=== PATIENT | female | born 1935 | race Hispanic/Latino ===

== ENCOUNTER 2021-07-17 14:15 | Emergency (ER) | payer MEDICARE ==
[~2021-07-17] VITALS: Ht 149.9 cm; Wt 68.1 kg
[2021-07-17] MEDS ORDERED: GLIMEPIRIDE2 MG PO (14:46)
[2021-07-17] MEDS ORDERED: PRAVASTATIN SOD40 MG (14:46)
[2021-07-17] MEDS ORDERED: AMIODARONE HCL200 MG PO (14:46)
[2021-07-17] MEDS ORDERED: LORATADINE10 MG PO (14:46)
[2021-07-17] MEDS ORDERED: ELIQUIS2.5 MG PO (14:46)
[2021-07-17] MEDS ORDERED: SYNTHROID50 MCG PO (14:46)
[2021-07-17] MEDS ORDERED: LOSARTAN POTASS25 MG PO (14:46)
[2021-07-17] MEDS ORDERED: OMEPRAZOLE40 MG PO (14:46)
[2021-07-17] MEDS ORDERED: MECLIZINE HCL12.5 MG PO (14:46)
[2021-07-17] MEDS ORDERED: ISOSORBIDE MONO30 MG PO (14:46)
[2021-07-17] MEDS ORDERED: MONTELUKAST SOD10 MG PO (14:46)
[2021-07-17] MEDS ORDERED: METOPROLOL TART50 MG PO (14:46)
[2021-07-17] MEDS ORDERED: FOLIC ACID0.4 MG PO (14:46)
[2021-07-17] MEDS ORDERED: SODIUM CHLORIDE 0.9% 50ML 50 ML ONE (16:06)
[2021-07-17] MEDS ORDERED: IOPAMIDOL 370 MG/ML 200 ML INFUS..BTL INJ ONE (16:06)
[2021-07-17] MEDS ORDERED: KETOROLAC TROMETHAMINE 30 MG/ML VIAL IV ONE (17:00)
[2021-07-17] MEDS ORDERED: SODIUM CHLORIDE 0.9% 500ML 500 ML IV ONE (17:00)
[2021-07-17] MEDS ORDERED: SODIUM CHLORIDE 0.9% 500ML 500 ML ONE (17:01)
[2021-07-17] MEDS ORDERED: KETOROLAC TROMETHAMINE 30 MG/ML VIAL ONE (17:01)
[2021-07-17] MEDS ORDERED: DICYCLOMINE HCL 20 MG TAB PO ONE ×2 (17:30)
[2021-07-17] MEDS ORDERED: CIPROFLOXACIN 400 MG/D5W 200ML 200 ML IV ONE (17:30)
[2021-07-17] MEDS ORDERED: METRONIDAZOLE 500MG/NS 100ML 100 ML IV ONE (17:30)
[2021-07-17] MEDS ORDERED: DICYCLOMINE HCL 10 MG CAP PO ONE (17:30)
[2021-07-17] MEDS ORDERED: DICYCLOMINE HCL 10 MG CAP ONE (17:32)
[2021-07-17] MEDS ORDERED: SODIUM CHLORIDE 0.9% 100 ML ONE (17:33)
[2021-07-17] MEDS ORDERED: DICYCLOMINE HCL20 MG PO (19:19)
[2021-07-17] MEDS ORDERED: ONDANSETRON ODT4 MG PO (19:19)
[2021-07-17] MEDS ORDERED: AUGMENTIN 875-1 EACH PO (19:21)
[2021-07-17] MEDS ORDERED: METRONIDAZOLE500 MG PO (19:22)
[2021-07-17 19:33] VITALS: BP 150/82
== END 2021-07-17 19:33 | disposition home or self-care (01) ==
LOC: FSED 14:25
DX: R10.32 Left lower quadrant pain (principal); K57.32 Diverticulitis of large intestine without perforation or abscess without bleeding; I10 Essential (primary) hypertension; E11.9 Type 2 diabetes mellitus without complications; E78.5 Hyperlipidemia, unspecified; E03.9 Hypothyroidism, unspecified; I25.10 Atherosclerotic heart disease of native coronary artery without angina pectoris; I48.91 Unspecified atrial fibrillation; I25.2 Old myocardial infarction; Z95.1 Presence of aortocoronary bypass graft; Z95.5 Presence of coronary angioplasty implant and graft; Z95.810 Presence of automatic (implantable) cardiac defibrillator
CPT/HCPCS: 74177; 80048; 80076; 81003; 82553; 84484; 85025; 96374; 99284; J0744; J1885; J7040; J7050; Q9967

== ENCOUNTER → 2024-02-24 | Outpatient (REF) | payer MEDICARE ==
[~2024-02-24] MED LIST: AMIODARONE HCL200 MG PO; AUGMENTIN 875-1 EACH PO; DICYCLOMINE HCL20 MG PO; ELIQUIS2.5 MG PO; FOLIC ACID0.4 MG PO; GLIMEPIRIDE2 MG PO; ISOSORBIDE MONO30 MG PO; LORATADINE10 MG PO; LOSARTAN POTASS25 MG PO; MECLIZINE HCL12.5 MG PO; METOPROLOL TART50 MG PO; METRONIDAZOLE500 MG PO; MONTELUKAST SOD10 MG PO; OMEPRAZOLE40 MG PO; ONDANSETRON ODT4 MG PO; PRAVASTATIN SOD40 MG; SYNTHROID50 MCG PO
== END ==
LOC: US 12:33
PROVIDERS: ATTEND Student in an Organized Health Care Education/Training Program
DX: R10.2 Pelvic and perineal pain (principal); R10.12 Left upper quadrant pain; K80.20 Calculus of gallbladder without cholecystitis without obstruction
CPT/HCPCS: 76700; 76856